=== PATIENT | male | born 1970 | race Caucasian/White ===

== ENCOUNTER 2017-04-01 00:26 | Emergency (ER) | payer MEDICAID, OTHER ==
[~2017-04-01 00:26] MED LIST: DICL75 PO; DUEX800T PO; METH500T3 OR; PRED10PA PO
[2017-04-01 00:28] VITALS: BP 133/77; PULSE 90; RESP 16; TEMP 97.4; O2SAT 97
== END 2017-04-01 02:00 | disposition left against medical advice (07) ==
LOC: NED 00:26
DX: R11.2 Nausea with vomiting, unspecified (principal); R10.9 Unspecified abdominal pain; Z53.21 Procedure and treatment not carried out due to patient leaving prior to being seen by health care provider
CPT/HCPCS: 99281

== ENCOUNTER 2017-09-02 08:50 | Observation (INO) | payer OTHER ==
[~2017-09-02] VITALS: Ht 167.6 cm; Wt 77.8 kg
[2017-09-02 08:57] VITALS: BP 139/84; PULSE 130; RESP 18; TEMP 98.6; O2SAT 99
[2017-09-02] MEDS ORDERED: TYLETAB34 PO (09:09)
[2017-09-02 09:15] LABS: BLOOD, URINE TRACE (NEG); GLUCOSE,URINE NEG (NEG); KETONE, URINE 15 mg/dL (NEG); NITRITE,URINE NEG (NEG); PH, URINE 5.5 (5.0-8.5)
[2017-09-02 09:24] LABS: METHOD OF COLLECTION CLEAN CATCH; URINE COLOR YELLOW (YELLW/STRAW)
[2017-09-02 09:25] LABS: MUCUS URINE FEW /lpf (OCC)
[2017-09-02 09:26] LABS: BACTERIA, URINE MOD /hpf; COMMENT (UR) CULTURE INDICATED; CULTURE IF INDICATED CULTURE INDICATED; SQUAMOUS EPITHELIAL CELL URINE 0-5 /hpf (0-5)
--- NOTE | 2017-09-02 09:27 | PD ---
HPI Chief Complaint: Abdominal Pain Time Seen by Provider: 09:13 Travel History International Travel<30 days: No Contact w/Intl Traveler<30days: No Traveled to known affect area: No History of Present Illness HPI 47yo M presents to the ED with c/o abdominal pain, nonbloody vomiting, nonbloody diarrhea since 6pm yesterday. Said he felt warm but no documented fever. Also with dysuria. Has history of kidney stones and also currently being evaluated for rheumatoid arthritis and takes tylenol #3 but has not been able to keep anything down. No abdominal surgeries. States abdominal pain is more epigastric, constant and nonradiating. Severity is moderate. Denies any chest pain, sob, recent travel, testicular pain, penile discharge or rash. PFSH Past Medical History Arthritis: Yes (cervical spine) Diminished Hearing: No Tetanus Vaccination: Unknown Past Surgical History Neurologic Surgery: Yes (C5-C7) Social History Alcohol Use: No (QUIT 20 YRS AGO) Tobacco Use: No Substance Use: No Allergies-Medications (Allergen,Severity, Reaction): Coded Allergies: gabapentin (Verified Allergy, Unknown, 09/02/17) Reported Meds & Prescriptions Reported Meds & Active Scripts Active Reported Tylenol-Codeine #3 (Acetaminophen-Codeine) 300-30 mg Tab 1 Tab PO DAILY PRN Review of Systems Except as stated in HPI: all other systems reviewed are Neg Physical Exam Narrative GENERAL: 47yo M in mild distress. SKIN: Focused skin assessment warm/dry. HEAD: Atraumatic. Normocephalic. EYES: Pupils equal and round. No scleral icterus. No injection or drainage. ENT: No nasal bleeding or discharge. Mucous membranes pink and moist. NECK: Trachea midline. No JVD. CARDIOVASCULAR: Regular rate and rhythm. No murmur appreciated. RESPIRATORY: No accessory muscle use. Clear to auscultation. Breath sounds equal bilaterally. GASTROINTESTINAL: Abdomen soft, +TTP RUQ. +[place] sign. No rebound tenderness or guarding. MUSCULOSKELETAL: No obvious deformities. No clubbing. No cyanosis. No edema. NEUROLOGICAL: Awake and alert. No obvious cranial nerve deficits. Motor grossly within normal limits. Normal speech. PSYCHIATRIC: Appropriate mood and affect; insight and judgment normal. Data Data Last Documented VS Vital Signs Date Time Temp Pulse Resp B/P (MAP) Pulse Ox O2 Delivery O2 Flow Rate FiO2 09/02/17 12:17 107 121/77 (92) 97 09/02/17 11:12 18 09/02/17 08:57 98.6 Orders Orders Urinalysis - C+S If Indicated (09/02/17 08:54) Basic Metabolic Panel (Bmp) (09/02/17 09:18) Complete Blood Count With Diff (09/02/17 09:18) Lipase (09/02/17 09:18) Lactic Acid (09/02/17 09:18) Prothrombin Time / Inr (Pt) (09/02/17 09:18) Act Partial Throm Time (Ptt) (09/02/17 09:18) Hepatic Functional Panel (09/02/17 09:18) Sodium Chlor 0.9% 1000 Ml Inj (Ns 1000 M (09/02/17 09:30) Ondansetron Inj (Zofran Inj) (09/02/17 09:30) Morphine Inj (Morphine Inj) (09/02/17 09:30) Us Abdomen Gallbladder (09/02/17 ) Urine Culture (09/02/17 09:02) Blood Culture (09/02/17 10:10) Piperacil-Tazo 3.375 Gm Premix (Zosyn 3. (09/02/17 10:15) Ct Abd/Pel W Iv Contrast(Rout) (09/02/17 ) Sodium Chlor 0.9% 1000 Ml Inj (Ns 1000 M (09/02/17 11:00) Iohexol 350 Inj (Omnipaque 350 Inj) (09/02/17 11:02) Morphine Inj (Morphine Inj) (09/02/17 12:00) Admit Order (Ed Use Only) (09/02/17 12:25) Labs Laboratory Tests Test 09/02/17 09:02 09/02/17 09:20 Urine Collection Type CLEAN CATCH Urine Color YELLOW Urine Turbidity CLEAR Urine pH 5.5 Urine Specific [place] 1.033 Urine Protein TRACE mg/dL Urine Glucose (UA) NEG mg/dL Urine Ketones 15 mg/dL Urine Occult Blood TRACE Urine Nitrite NEG Urine Bilirubin NEG Urine Leukocyte Esterase NEG Urine RBC 4-9 /hpf Urine Squamous Epithelial Cells 0-5 /hpf Urine Bacteria MOD /hpf Urine Mucus FEW /lpf Microscopic Urinalysis Comment CULTURE INDICATED Urine Collection Time 09:02 White Blood Count 19.5 TH/MM3 Red Blood Count 5.77 MIL/MM3 Hemoglobin 18.0 GM/DL Hematocrit 53.5 % Mean Corpuscular Volume 92.7 FL Mean Corpuscular Hemoglobin 31.2 PG Mean Corpuscular Hemoglobin Concent 33.7 % Red Cell Distribution Width 12.8 % Platelet Count 254 TH/MM3 Mean Platelet Volume 8.4 FL Neutrophils (%) (Auto) 95.6 % Lymphocytes (%) (Auto) 2.0 % Monocytes (%) (Auto) 1.7 % Eosinophils (%) (Auto) 0.1 % Basophils (%) (Auto) 0.6 % Neutrophils # (Auto) 18.7 TH/MM3 Lymphocytes # (Auto) 0.4 TH/MM3 Monocytes # (Auto) 0.3 TH/MM3 Eosinophils # (Auto) 0.0 TH/MM3 Basophils # (Auto) 0.1 TH/MM3 CBC Comment DIFF FINAL Differential Comment Prothrombin Time 10.0 SEC Prothromb Time International Ratio 1.0 RATIO Activated Partial Thromboplast Time 26.8 SEC Blood Urea Nitrogen 20 MG/DL Creatinine 1.10 MG/DL Random Glucose 158 MG/DL Total Protein 8.8 GM/DL Albumin 4.1 GM/DL Calcium Level 9.3 MG/DL Alkaline Phosphatase 108 U/L Aspartate Amino Transf (AST/SGOT) 12 U/L Alanine Aminotransferase (ALT/SGPT) 23 U/L Total Bilirubin 1.7 MG/DL Direct Bilirubin 0.3 MG/DL Sodium Level 136 MEQ/L Potassium Level 3.9 MEQ/L Chloride Level 100 MEQ/L Carbon Dioxide Level 23.7 MEQ/L Anion Gap 12 MEQ/L Estimat Glomerular Filtration Rate 71 ML/MIN Lactic Acid Level 1.7 mmol/L Indirect Bilirubin 1.4 MG/DL Lipase 58 U/L [facility] Medical Decision Making Medical Screen Exam Complete: Yes Emergency Medical Condition: Yes Differential Diagnosis Acute cholecystitis vs. cholangitis vs. pancreatitis vs. gastroenteritis Narrative Course 47yo M with abdominal pain, vomiting and diarrhea since yesterday. No documented fever but felt warm. Labs reviewed, leukocytosis at 19.5. H/H elevated, likely dehydration. BUN mildly elevated. Lactic acid normal at 1.7. Total bilirubin elevated at 1.7. Lipase low. UA showed moderate bacteria. Negative leukocyte. Culture indicated. Pt given NS IVF and HR has decreased from 130 to 110bpm. Will give another NS IVF. Pt also given zosyn IV. US gallbladder showed excessive bowel gas obscures most of pancreas and entire CBD. Otherwise negative. Pt reevaluated at bedside and pain has improved after morphine. Pt with ttp in epigastric and RUQ on exam. Pt reevaluated at bedside and abdominal pain is back. Second dose of pain medication given. CT a/p showed mild air and fluid distension. Ileus with a nonspecific enteritis. No obstruction. After 2 liters of NS IVF, HR has come down to low 100. Discussed with Dr. Cifuentes and accepted for dehydration, ileus. Sepsis Criteria SIRS Criteria (2 or more): Heart rate over 90, WBC > 20671, < 4000 or > 10% bands Sepsis Criteria (SIRS+source): Infect source susp/known Diagnosis Primary Impression: Dehydration Additional Impression: Enteritis Admitting Information Admitting Physician Requests: Amber Tello DO Sep 02, 2017 09:27
[2017-09-02] MEDS ORDERED: SODIUM CHLOR 0.9% 1000 ML INJ 1,000 ML IV ONE ×2 (09:30→11:00)
[2017-09-02] MEDS ORDERED: ONDANSETRON HCL 4 MG/2 ML VIAL IV PUSH ONE (09:30)
[2017-09-02] MEDS ORDERED: MORPHINE SULFATE 4 MG/ML INJ IV PUSH ONE ×2 (09:30→12:00)
[2017-09-02 09:33] LABS: AUTOMATED NEUTROPHIL # 18.7 TH/MM3 (1.8-7.7); BASOPHIL # 0.1 TH/MM3 (0-0.2); BASOPHIL % 0.6 % (0.0-2.0); EOSINOPHIL % 0.1 % (0.0-4.0); HEMATOCRIT 53.5 % (39.0-51.0); LYMPHOCYTE # 0.4 TH/MM3 (1.0-4.8); MEAN CELL VOLUME 92.7 FL (80.0-100.0); MEAN CORPUSCULAR HEMOGLOBIN 31.2 PG (27.0-34.0); MEAN CORPUSCULAR HGB CONC 33.7 % (32.0-36.0); MONO % 1.7 % (0.0-8.0); NEUT % 95.6 % (16.0-70.0); PLATELET COUNT 254 TH/MM3 (150-450); RED BLOOD COUNT 5.77 MIL/MM3 (4.50-5.90); RED CELL DISTRIBUTION WIDTH 12.8 % (11.6-17.2); WHITE BLOOD COUNT 19.5 TH/MM3 (4.0-11.0)
[2017-09-02 09:35] LABS: HEMO FLAGS DIFF FINAL
[2017-09-02 09:48] LABS: BICARBONATE 23.7 MEQ/L (21.0-32.0)
[2017-09-02 09:53] LABS: INDIRECT BILIRUBIN 1.4 MG/DL (0.0-0.8); TOTAL BILIRUBIN ADULT 1.7 MG/DL (0.2-1.0)
[2017-09-02 09:55] LABS: APTT (PATIENT) 26.8 SEC (24.3-30.1); POTASSIUM 3.9 MEQ/L (3.5-5.1)
[2017-09-02] MEDS ORDERED: PIPERACIL-TAZO 3.375 GM PREMIX 50 ML IV ONE (10:15)
--- NOTE | 2017-09-02 10:21 | RADRPT ---
EXAM DATE/TIME: 09/02/2017 09:47 [facility] COMPARISON: No previous studies available for comparison. INDICATIONS : Right upper quadrant pain. MEDICAL HISTORY : Arthritis. Nausea. Vomiting. SURGICAL HISTORY : None. ENCOUNTER: Initial ACUITY: 1 day PAIN SCORE: 6/10 LOCATION: Right upper quadrant MEASUREMENTS: LIVER: 14.4 cm length COMMON DUCT: Non-visualized due to overlying bowel gas. RIGHT KIDNEY: 11.6 x 4.6 x 6.3 cm FINDINGS: LIVER: Normal echotexture without focal lesion or ductal dilatation. COMMON DUCT: No intraluminal mass or stone visualized. GALLBLADDER: Contains no stones, demonstrates no wall thickening or pericholecystic fluid. PANCREAS: Mostly obscured by overlying bowel gas. Visualized portions are sonographically normal. RIGHT KIDNEY: No evidence of hydronephrosis, stone, or mass. CONCLUSION: 1. Excessive bowel gas obscures most of the pancreas and the entire CBD. 2. Otherwise negative. Wilson Seo MD on September 02, 2017 at 10:17 Board Certified Radiologist. This report was verified electronically.
[2017-09-02] MEDS ORDERED: IOHEXOL 350 MG/ML 10 ML VIAL (for RAD DIAG) IVCONTRAST ONE (11:02)
[2017-09-02 11:12] VITALS: BP 144/77; PULSE 108; RESP 18; O2SAT 95
--- NOTE | 2017-09-02 11:12 | RADRPT ---
EXAM DATE/TIME: 09/02/2017 10:51 [facility] COMPARISON: No previous studies available for comparison. INDICATIONS : Epigastric and right upper quadrant pain, nausea, vomiting and diarrhea. IV CONTRAST: 85 cc Omnipaque 350 (iohexol) IV ORAL CONTRAST: No oral contrast ingested. RADIATION DOSE: 10.01 CTDIvol (mGy) MEDICAL HISTORY : None SURGICAL HISTORY : Fusion, cervical. ENCOUNTER: Initial ACUITY: 1 day PAIN SCALE: 6/10 LOCATION: Right upper quadrant TECHNIQUE: Volumetric scanning of the abdomen and pelvis was performed. Using automated exposure control and ad justment of the mA and/or kV according to patient size, radiation dose was kept as low as reasonably achievable to obtain optimal diagnostic quality images. DICOM format image data is available electro nically for review and comparison. FINDINGS: LOWER LUNGS: The visualized lower lungs are clear. LIVER: Homogeneous density without lesion. There is no dilation of the biliary tree. No calcified gallston es. SPLEEN: Normal size without lesion. PANCREAS: Within normal limits. KIDNEYS: Normal in size and shape. There is no mass, stone or hydronephrosis. ADRENAL GLANDS: Within normal limits. VASCULAR: There is no aortic aneurysm. BOWEL/MESENTERY: Mild air and fluid distention throughout the small bowel with no transition. No findings of obstructi on. ABDOMINAL WALL: Within normal limits. RETROPERITONEUM: There is no lymphadenopathy. BLADDER: There appears to be a small urachal diverticulum off the anteroinferior aspect of the bladder. REPRODUCTIVE: Prostate is borderline prominent measuring 4.1 cm with dystrophic calcifications. INGUINAL: There is no lymphadenopathy or hernia. MUSCULOSKELETAL: Levoscoliosis of the lumbar spine with associated degenerative spurring. CONCLUSION: 1. There is mild air and fluid distention throughout the small bowel with no transition. Findings are characteristic of a hypodynamic ileus possibly associated with a nonspecific enteritis. No obstructi on. 2. 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 3. Prostate is mildly prominent with regional dystrophic calcifications Wilson Seo MD on September 02, 2017 at 11:03 Board Certified Radiologist. This report was verified electronically.
[2017-09-02 12:17] VITALS: BP 121/77; PULSE 107; O2SAT 97
[2017-09-02] MEDS ORDERED: ACETAMINOPHEN 325 MG TAB PO PRN (12:45)
[2017-09-02] MEDS ORDERED: ONDANSETRON HCL 4 MG/2 ML VIAL IVP PRN (12:45)
[2017-09-02] MEDS ORDERED: NALOXONE HCL 0.4 MG/ML AMP IV PUSH PRN (12:45)
[2017-09-02 13:00] VITALS: BP 110/68; PULSE 98; RESP 18; TEMP 96.7; O2SAT 98
[2017-09-02] MEDS ORDERED: PANTOPRAZOLE SODIUM 40 MG VIAL IV PUSH SCH (14:00)
[2017-09-02] MEDS: SODIUM CHLOR 0.9% 1000 ML INJ 1,000 ML IV SCH ×2 (15:08→19:23)
[2017-09-02 15:27] LABS: AUTOMATED NEUTROPHIL # 12.7 TH/MM3 (1.8-7.7); BASOPHIL # 0.2 TH/MM3 (0-0.2); BASOPHIL % 1.1 % (0.0-2.0); LYMPH % 5.2 % (9.0-44.0); LYMPHOCYTE # 0.7 TH/MM3 (1.0-4.8); MEAN CELL VOLUME 92.3 FL (80.0-100.0); MEAN CORPUSCULAR HEMOGLOBIN 30.5 PG (27.0-34.0); MONO % 5.6 % (0.0-8.0); NEUT % 88.1 % (16.0-70.0); PLATELET COUNT 236 TH/MM3 (150-450); RED CELL DISTRIBUTION WIDTH 12.7 % (11.6-17.2); WHITE BLOOD COUNT 14.4 TH/MM3 (4.0-11.0)
[2017-09-02 15:47] LABS: HEMO FLAGS DIFF FINAL
[2017-09-02] MEDS ORDERED: ACETAMINOPHEN/CODEINE 300 MG/30 MG TAB PO PRN ×2 (17:00→17:30)
--- NOTE | 2017-09-02 17:46 | MH ---
cc: JESSICA ALBERT M.D. DATE OF ADMISSION 09/02/2017 ADMISSION DIAGNOSIS Dehydration, enteritis HISTORY OF PRESENT ILLNESS The patient is a pleasant 47-year-old gentleman who presents to the emergency room after developing nausea, vomiting and diarrhea the evening before. The patient states that he had been in his usual state of health that day. He had gone out and eaten . He said that the meal that he had other people around him had also eaten. Suddenly around 6 o'clock in the evening, he developed sudden sharp abdominal pain in the mid abdomen. This was followed by nausea, vomiting and diarrhea. He said throughout the night he persisted with the abdominal pain, the nausea, vomiting and diarrhea. He said he must have gone over 10 times. It kept him up all night. He broke out into a sweat when he was throwing up like this. His stools were not black or bloody. He said his last bowel movement with an approximately four in the morning. He finally was able to get some sleep. He states that approximately 6 o'clock, however, he woke up again with other bouts of diarrhea and vomiting and this finally prompted him to come to the emergency room. He denies any heartburn or reflux. He states that he normally does not have any stomach issues. He does state, however, that he has had decreased appetite in the last two months. Typically, he will have a pop tart or a [employer] for breakfast and he does not eat much lunch and then in the evening when he comes home, he is eating approximately half the food that is placed in front of him. This has prompted a weight loss of approximately 13 pounds. He denies any alcohol consumption. He says he stopped around 20 years ago. He does state that he takes ibuprofen. He takes [id number] approximately twice a day, once at the beginning of the day and at the end of the day after work. He takes this primarily for neck and hand pain and whenever he gets a sinus headache. Past medical history is unremarkable except for arthritis. He does tell me that he is seeing a specialist for neck and hand problems and they are currently evaluating him for rheumatoid arthritis. Surgical history includes fusion of the cervical spine. ALLERGIES GABAPENTIN - Cannot tell me what the allergic reaction is MEDICATIONS 1. Tylenol with codeine that he takes at night for his neck and hand pain. 2. Ibuprofen that he takes during the day for just generalized pain in his joints. HABITS He states he no longer smokes. Alcohol he stopped consuming approximately 20 years ago. SOCIAL HISTORY He is . He has a young son. 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 REVIEW OF SYSTEMS He denies any fevers. He did say he had some chills when he was throwing up and when he broke out into the sweats. No cough. No chest pain or palpitations. No lightheadedness. The abdominal pain is mid epigastric and sharp punching like pain. He does not say it comes and wanes. He does tell me that he is able to void well. He has no issues with urination. He does not normally get any swelling in his feet or his hands. He does say he does get joint pain and he has been told that the tendons of his wrist are torn. FAMILY HISTORY Noncontributory. No history of colon cancer or malignancy PHYSICAL EXAMINATION VITAL SIGNS: Temperature is 96.7, pulse of 98, respirations 18, blood pressure is 110/68, pulse ox on room air is 98%. GENERAL: He is actually sleeping when I walk into the room. He is easily arousable. HEENT: He is normocephalic atraumatic. EOM intact. He has a moist oral mucosa. NECK: Supple. LUNGS: Clear to auscultation bilaterally. HEART: Just slightly tachycardiac. I hear no murmurs. ABDOMENZ: Good bowel sounds in all four quadrants. He does have some slight mid epigastric and right upper quadrant tenderness to palpation but no rebound or guarding. EXTREMITIES: No clubbing, cyanosis or edema. LABORATORY DATA White count 19.5 with hemoglobin of 18, hematocrit of 53.5, platelet count of 254. PT was 10, INR was 1, PTT was 26.8. Sodium was 136 with a potassium of 3.9, BUN was 20, creatinine was 1.1, random glucose was 158, total bili was 1.7 with a direct of 0.3 and an indirect of 1.4, AST was low at 12 with an ALT of 23 which is normal, alk phos was also normal. Lipase was 58. His UA was remarkable for ketones, 4-9 RBCs, moderate bacteria and a culture is pending. IMAGING STUDIES Ultrasound of the gallbladder that was done showed excessive bowel gas that stayed most of the pancreas and the entire common bile duct otherwise it was negative. CT scan of the abdomen was done which showed mild air-fluid distension throughout the small bowel and no transition. Findings were characteristic of a hypodynamic ileus probably associated with a nonspecific enteritis. No obstruction, probable small urethral diverticulum off the anterior inferior aspect of the urinary bladder and prostate was mildly prominent with regional dystrophic calcifications. ASSESSMENT/PLAN A 47-year-old gentleman presenting to the emergency room with an approximately 12-hour history of abdominal pain, nausea, vomiting and diarrhea. At this point, I think he has a gastroenteritis and his lab work was consistent with some hemo-concentration and dehydration. He has been receiving IV fluids. He tells me that when I evaluate him, he has had no more diarrhea during the day. He has had some nausea. His abdominal pain is more associated with the nausea. He actually received some Zofran and with the Zofran the abdominal pain dissipated. He seems to be feeling a little bit better at this point. We will continue with volume resuscitation, antibiotics and monitor him overnight to see how he does. Because of the use of the ibuprofen that he has had, I have also placed him on some Protonix. His bilirubin was slightly elevated. We will monitor that. He may have disease. He is unable to tell me if he has ever had elevations of bilirubin in the past. The rest of his lab work liver enzymes are normal and we will have to monitor his blood count. In term of his possible UTI, I started him on some Levaquin. He did receive a dose of Zosyn in the emergency room at his initial presentation. He has remained afebrile. We will gradually progress his diet overnight and continue to see how he does. Further recommendations as the case develops. MD MARY Lu/ /5:07 PM /5:23 PM
[2017-09-02] MEDS ORDERED: LEVOFLOXACIN 500 MG PREMIX INJ 100 ML IV SCH (18:00)
[2017-09-02 20:00] VITALS: BP 116/64; PULSE 101; RESP 18; TEMP 98.3; O2SAT 97
[2017-09-03] VITALS: BP 119/72; PULSE 90; RESP 18; TEMP 96.8; O2SAT 96
[2017-09-03] MEDS: SODIUM CHLOR 0.9% 1000 ML INJ 1,000 ML IV SCH ×2 (02:03→05:46)
[2017-09-03 04:00] VITALS: BP 124/74; PULSE 90; RESP 16; TEMP 96.9; O2SAT 98
[2017-09-03 07:55] LABS: AUTOMATED NEUTROPHIL # 7.8 TH/MM3 (1.8-7.7); BASOPHIL % 0.2 % (0.0-2.0); EOSINOPHIL # 0.1 TH/MM3 (0-0.4); EOSINOPHIL % 0.8 % (0.0-4.0); LYMPH % 11.3 % (9.0-44.0); LYMPHOCYTE # 1.2 TH/MM3 (1.0-4.8); MEAN CELL VOLUME 93.2 FL (80.0-100.0); MEAN CORPUSCULAR HEMOGLOBIN 31.4 PG (27.0-34.0); MEAN CORPUSCULAR HGB CONC 33.6 % (32.0-36.0); MONO % 10.4 % (0.0-8.0); NEUT % 77.3 % (16.0-70.0); PLATELET COUNT 199 TH/MM3 (150-450); RED BLOOD COUNT 4.62 MIL/MM3 (4.50-5.90); RED CELL DISTRIBUTION WIDTH 12.5 % (11.6-17.2); WHITE BLOOD COUNT 10.2 TH/MM3 (4.0-11.0)
[2017-09-03 07:57] LABS: CHLORIDE 107 MEQ/L (98-107); POTASSIUM 3.8 MEQ/L (3.5-5.1); SODIUM (NA) 141 MEQ/L (136-145)
[2017-09-03 08:00] VITALS: BP 119/76; PULSE 84; RESP 18; TEMP 97.6; O2SAT 98
[2017-09-03 08:00] LABS: HEMO FLAGS DIFF FINAL
[2017-09-03 08:23] LABS: ALKALINE PHOSPHATASE 69 U/L (45-117); ALT (GPT) 17 U/L (12-78); ANION GAP 8 MEQ/L (5-15); AST (GOT) 15 U/L (15-37); GLOMERULAR FILTRATION RATE 102 ML/MIN (>89); TOTAL BILIRUBIN ADULT 1.1 MG/DL (0.2-1.0)
[2017-09-03 08:25] LABS: BLOOD UREA NITROGEN 15 MG/DL (7-18)
--- NOTE | 2017-09-03 08:38 | HHI.PR ---
Subjective Remarks He has had no vomiting since yesterday morning. His abdominal pain is resolved and his last episode of diarrhea was last night. He feels much better. Objective Vitals Vital Signs Date Time Temp Pulse Resp B/P (MAP) Pulse Ox O2 Delivery O2 Flow Rate FiO2 09/03/17 08:00 97.6 84 18 119/76 (90) 98 09/03/17 04:00 96.9 90 16 124/74 (91) 98 09/03/17 00:00 96.8 90 18 119/72 (88) 96 09/02/17 20:00 98.3 101 18 116/64 (81) 97 09/02/17 13:04 09/02/17 13:00 96.7 98 18 110/68 (82) 98 09/02/17 12:17 107 121/77 (92) 97 09/02/17 11:12 108 18 144/77 (99) 95 09/02/17 08:57 98.6 130 18 139/84 (102) 99 Result Diagram: 09/03/17 0630 09/03/17 0630 Other Results Laboratory Tests Test 09/02/17 09:02 09/02/17 09:20 09/02/17 15:16 09/03/17 06:30 Urine Collection Type CLEAN CATCH Urine Color YELLOW Urine Turbidity CLEAR Urine pH 5.5 Urine Specific [place] 1.033 Urine Protein TRACE mg/dL Urine Glucose (UA) NEG mg/dL Urine Ketones 15 mg/dL Urine Occult Blood TRACE Urine Nitrite NEG Urine Bilirubin NEG Urine Leukocyte Esterase NEG Urine RBC 4-9 /hpf Urine Squamous Epithelial Cells 0-5 /hpf Urine Bacteria MOD /hpf Urine Mucus FEW /lpf Microscopic Urinalysis Comment CULTURE INDICATED Urine Collection Time 09:02 White Blood Count 19.5 TH/MM3 14.4 TH/MM3 10.2 TH/MM3 Red Blood Count 5.77 MIL/MM3 5.20 MIL/MM3 4.62 MIL/MM3 Hemoglobin 18.0 GM/DL 15.9 GM/DL 14.5 GM/DL Hematocrit 53.5 % 48.0 % 43.0 % Mean Corpuscular Volume 92.7 FL 92.3 FL 93.2 FL Mean Corpuscular Hemoglobin 31.2 PG 30.5 PG 31.4 PG Mean Corpuscular Hemoglobin Concent 33.7 % 33.0 % 33.6 % Red Cell Distribution Width 12.8 % 12.7 % 12.5 % Platelet Count 254 TH/MM3 236 TH/MM3 199 TH/MM3 Mean Platelet Volume 8.4 FL 8.0 FL 8.6 FL Neutrophils (%) (Auto) 95.6 % 88.1 % 77.3 % Lymphocytes (%) (Auto) 2.0 % 5.2 % 11.3 % Monocytes (%) (Auto) 1.7 % 5.6 % 10.4 % Eosinophils (%) (Auto) 0.1 % 0.0 % 0.8 % Basophils (%) (Auto) 0.6 % 1.1 % 0.2 % Neutrophils # (Auto) 18.7 TH/MM3 12.7 TH/MM3 7.8 TH/MM3 Lymphocytes # (Auto) 0.4 TH/MM3 0.7 TH/MM3 1.2 TH/MM3 Monocytes # (Auto) 0.3 TH/MM3 0.8 TH/MM3 1.1 TH/MM3 Eosinophils # (Auto) 0.0 TH/MM3 0.0 TH/MM3 0.1 TH/MM3 Basophils # (Auto) 0.1 TH/MM3 0.2 TH/MM3 0.0 TH/MM3 CBC Comment DIFF FINAL DIFF FINAL DIFF FINAL Differential Comment Prothrombin Time 10.0 SEC Prothromb Time International Ratio 1.0 RATIO Activated Partial Thromboplast Time 26.8 SEC Blood Urea Nitrogen 20 MG/DL 15 MG/DL Creatinine 1.10 MG/DL 0.81 MG/DL Random Glucose 158 MG/DL 87 MG/DL Total Protein 8.8 GM/DL 6.4 GM/DL Albumin 4.1 GM/DL 2.8 GM/DL Calcium Level 9.3 MG/DL 7.6 MG/DL Alkaline Phosphatase 108 U/L 69 U/L Aspartate Amino Transf (AST/SGOT) 12 U/L 15 U/L Alanine Aminotransferase (ALT/SGPT) 23 U/L 17 U/L Total Bilirubin 1.7 MG/DL 1.1 MG/DL Direct Bilirubin 0.3 MG/DL Sodium Level 136 MEQ/L 141 MEQ/L Potassium Level 3.9 MEQ/L 3.8 MEQ/L Chloride Level 100 MEQ/L 107 MEQ/L Carbon Dioxide Level 23.7 MEQ/L 26.0 MEQ/L Anion Gap 12 MEQ/L 8 MEQ/L Estimat Glomerular Filtration Rate 71 ML/MIN 102 ML/MIN Lactic Acid Level 1.7 mmol/L Indirect Bilirubin 1.4 MG/DL Lipase 58 U/L Imaging Last Impressions Gall Bladder Ultrasound 09/02/17 0000 Signed Impressions: Service Date/Time: Saturday, September 02, 2017 09:47 - CONCLUSION: 1. Excessive bowel gas obscures most of the pancreas and the entire CBD. 2. Otherwise negative. Wilson Seo MD Abdomen/Pelvis CT 09/02/17 0000 Signed Impressions: Service Date/Time: Saturday, September 02, 2017 10:51 - CONCLUSION: 1. There is mild air and fluid distention throughout the small bowel with no transition. Findings are characteristic of a hypodynamic ileus possibly associated with a nonspecific enteritis. No obstruction. 2. 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 3. Prostate is mildly prominent with regional dystrophic calcifications Wilson Seo MD Objective Remarks Exam: Pleasant white male in no distress. HEENT: Pupils equal, no scleral icterus, mouth negative Neck: No JVD Heart: RRR without murmurs Lungs: Clear Abdomen: Soft, no significant tenderness Extremities: No edema Neuro: Alert, oriented A/P Assessment and Plan Assessment: --Viral gastroenteritis--symptoms much better --Dehydration--resolved --UTI Plan: Discharge today. Levaquin 500mg daily x 3 days for UTI. Followup PCP next week. Pantoprazole 40mg daily x 3 weeks. Rupert Ferguson MD Sep 03, 2017 08:38
[2017-09-03] MEDS ORDERED: PANT40P IV PUSH (08:44)
[2017-09-03] MEDS ORDERED: LEVO500T8 PO (08:45)
== END 2017-09-03 09:51 | disposition home or self-care (01) ==
LOC: PHED 08:50 → PHEDA 12:25 → PH3B 12:56
PROVIDERS: ADMIT Legal Medicine; ATTEND Legal Medicine
DX: E86.0 Dehydration (principal); A08.4 Viral intestinal infection, unspecified; N39.0 Urinary tract infection, site not specified; M19.90 Unspecified osteoarthritis, unspecified site; Z87.891 Personal history of nicotine dependence; Z98.1 Arthrodesis status
CPT/HCPCS: 74177; 76705; 80048; 80053; 80076; 81001; 83605; 83690; 85025; 85610; 85730; 87040; 87086; 96361; 96365; 96366; 96375; 96376; 99285; C9113; G0378; J1956; J2270; J2405; J2543; J7030; Q9967